=== PATIENT | female | born 1995 | race American Indian/Alaskan Native ===

== ENCOUNTER 2017-12-19 21:30 | Emergency (ER) | payer MEDICAID ==
[2017-12-19] MEDS ORDERED: NACL 0.9% 1000 ML 1,000 ML IV ONE (21:53)
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
[2017-12-19 22:05] LABS: Hematocrit 38.7 % (30.3-42.9); Hemoglobin 12.8 gm/dl (10.1-14.3); Mean Corpuscular HGB Conc 33 % (30-34); Mean Corpuscular Hemoglobin 29 pg (28-32); Mean Corpuscular Volume 88 fl (79-97); Platelet Count 455 K/mm3 (140-440); Red Blood Count 4.39 M/mm3 (3.65-5.03); Red Cell Distribution Width 14.4 % (13.2-15.2)
[2017-12-19 22:08] LABS: INR 0.98 (0.87-1.13)
[2017-12-19 22:09] LABS: Partial Thromboplastin Time 31.1 Sec. (24.2-36.6)
[2017-12-19] MEDS ORDERED: NACL 3% 500 ML IV ONE (22:12)
[2017-12-19 22:14] LABS: Alanine Aminotransferase 97 units/L (7-56); Albumin 4.2 g/dL (3.9-5); BUN/Creatinine Ratio 14; Blood Urea Nitrogen 13 mg/dL (7-17); Calcium 9.3 mg/dL (8.4-10.2); Hemolysis Index 11
--- NOTE | 2017-12-19 22:36 | XRay Report ---
FINAL REPORT PROCEDURE: XR CHEST 1V AP TECHNIQUE: Chest radiograph anteroposterior view. CPT 47831 HISTORY: dyspnea COMPARISON: No prior studies are available for comparison. FINDINGS: Heart: Normal. Mediastinum/Vessels: Normal. Lungs/Pleural space: Normal. Bony thorax: No acute osseous abnormality. Life support devices: Endotracheal tube at the [place]. IMPRESSION: Endotracheal tube at the [place] should be pulled back 3 cm.
[2017-12-19] MEDS ORDERED: ARTIFICIAL TEARS OPHTH OINT OU PRN (22:50)
[2017-12-19] MEDS ORDERED: VASELINE LIP THERAPY TP PRN (22:50)
[2017-12-19] MEDS ORDERED: QUELICIN ONE ×2 (23:00)
[2017-12-19] MEDS ORDERED: MIDAZOLAM 100 MG in NACL 0.9% 80 ML IV SCH (23:00)
[2017-12-19] MEDS ORDERED: VERSED IV ONE (23:00)
[2017-12-19] MEDS ORDERED: AMIDATE IV ONE ×2 (23:00)
[2017-12-19] MEDS ORDERED: VERSED IV NR (23:00)
--- NOTE | 2017-12-19 23:21 | Cat Scan Report ---
FINAL REPORT PROCEDURE: CT HEAD/BRAIN WO CON TECHNIQUE: Computerized tomography of the head was performed without contrast material. HISTORY: Trauma COMPARISON: No prior studies are available for comparison. FINDINGS: Skull and scalp: Soft tissue swelling and injury over the convexity, of the face, and of the right frontal and parietal-occipital regions. Paranasal sinuses: Normal. Ventricles and subarachnoid spaces: Normal. Cerebrum: There is subtle focus of increased density in the right frontal lobe with possible hemorrhagic contusion, series 2, image 35. There is subtle extra-axial increased density in the left parietal region with subdural hematoma versus artifact, series 2 image 48 through 50 Cerebellum and brainstem: No evidence of hemorrhage, acute infarction or mass. Vasculature: Normal. Comments: None. IMPRESSION: Soft tissue swelling and injury. Increased density in the right frontal region suggesting hemorrhagic contusion. Subtle increased density in the left parietal region with probable subdural hematoma.
--- NOTE | 2017-12-19 23:22 | Cat Scan Report ---
FINAL REPORT PROCEDURE: CT CERVICAL SPINE WO CON TECHNIQUE: Computerized tomography of the cervical spine was performed from the skull base to T1 without contrast material. HISTORY: Trauma COMPARISON: No prior studies are available for comparison. FINDINGS: There is straightening of the cervical lordosis. Alignment is otherwise satisfactory. Odontoid process is intact. No fracture. C1-2: No significant abnormality. C2-3: No significant abnormality. C3-4: No significant abnormality. C4-5: No significant abnormality. C5-6: No significant abnormality. C6-7: No significant abnormality. C7-T1: No significant abnormality. Other: There is endotracheal tube. IMPRESSION: No significant abnormality.
--- NOTE | 2017-12-19 23:32 | Cat Scan Report ---
FINAL REPORT PROCEDURE: CT THORACIC SPINE WO CON TECHNIQUE: Computerized axial tomography of the thoracic spine was performed from C7 - L1 without contrast material. HISTORY: Trauma COMPARISON: No prior studies are available for comparison. FINDINGS: Alignment is satisfactory. There is no compression fracture. Disc spaces are well preserved. There are fractures involving the transverse processes on the right side of T5, T7, T8, and T9. There are fractures of ribs including the right 1st anterior rib and the left posterior 8 through 11th ribs. There airspace consolidation in the right mid and lower lung consistent with contusion. There is small pleural effusions. IMPRESSION: Fractures of right transverse processes of T5, T7, T8, and T9. Multiple bilateral rib fractures. Contusion of the right lung. Bilateral pleural effusions.
--- NOTE | 2017-12-19 23:34 | Cat Scan Report ---
FINAL REPORT PROCEDURE: CT FACIAL BONES WO CON TECHNIQUE: Computerized tomography of the facial bones and soft tissues with axial and coronal sections performed from the cranial aspect of the frontal sinuses to the caudal portion of the mandible without contrast material. HISTORY: Trauma COMPARISON: No prior studies are available for comparison. FINDINGS: Bones: No significant abnormality. Paranasal sinuses: Clear. Soft tissues: Soft tissue swelling and injury of the face and frontal region. Other: There is endotracheal tube.. IMPRESSION: No fracture seen.
--- NOTE | 2017-12-19 23:37 | Cat Scan Report ---
FINAL REPORT PROCEDURE: CT LUMBAR SPINE WO CON TECHNIQUE: Magnetic resonance imaging of the lumbar spine was performed using standard pulse sequences without contrast material. CPT 90166 HISTORY: Trauma COMPARISON: No prior studies are available for comparison. FINDINGS: No fracture. Alignment is satisfactory. Disc spaces are well preserved. L1-2: No significant abnormality . L2-3: No significant abnormality . L3-4: No significant abnormality . L4-5: No significant abnormality . L5-S1: No significant abnormality . Other: None . IMPRESSION: Normal Examination
[2017-12-19 23:38] LABS: Bilirubin,Urine NEG (Negative); Blood,Urine LG (Negative); Color,Urine Straw (Yellow); Protein,Urine <15 mg/dL mg/dL (Negative); Urobilinogen,Urine < 2.0 mg/dL (<2.0)
[2017-12-19 23:39] LABS: HCG Qualitative,Urine Negative (Negative)
[2017-12-19 23:44] VITALS: BP 149/100
[2017-12-19 23:45] LABS: Amphetamine Screen,Urine PRESUMPTIVE NEGATIVE; Cocaine Screen,Urine PRESUMPTIVE NEGATIVE; Methadone Screen,Urine PRESUMPTIVE NEGATIVE; Opiate Screen,Urine PRESUMPTIVE NEGATIVE
--- NOTE | 2017-12-19 23:46 | Cat Scan Report ---
FINAL REPORT PROCEDURE: CT CHEST W CON TECHNIQUE: Computerized axial tomography of the chest was performed without contrast material. HISTORY: Trauma COMPARISON: No prior studies are available for comparison. TECHNICAL QUALITY: Satisfactory. FINDINGS: Heart and pericardium: Normal. Thoracic aorta: Normal. Pulmonary vasculature: Normal. Lymph nodes: No enlarged thoracic lymph nodes. Lungs: There is right mid and lower lung airspace consolidation.. Pleural space: Small pleural effusions. There is tiny right pneumothorax of less than 5 percent at the lung base. Musculoskeletal structures: There are fractures of the right 1st through 4th anterior ribs. There is fracture of the lateral right 6th rib. There fractures of the left 9th through 11th rib fractures. There are fractures of the right transverse processes of T5, T7, T8, and T9. There is fracture of the sternum with displacement. There is adjacent soft tissue swelling with hematoma in the mediastinum. Upper abdominal structures: No significant abnormality. IMPRESSION: Multiple fractures involving ribs , transverse processes of the thoracic spine, and the sternum with displacement. There is contusion of right lung. There is small right pneumothorax. There is hematoma in the upper mediastinum.
--- NOTE | 2017-12-19 23:50 | Cat Scan Report ---
FINAL REPORT PROCEDURE: CT ABDOMEN PELVIS W CON TECHNIQUE: Computerized axial tomography of the abdomen and pelvis was performed after the IV injection of iodinated nonionic contrast. HISTORY: Trauma COMPARISON: No prior studies are available for comparison. FINDINGS: Visualized lower thorax: Right lower lung consolidation. Small bilateral pleural effusions. Tiny right pneumothorax. Liver: Normal size and attenuation. Spleen: Normal size and attenuation. Gallbladder and biliary system: Normal. Pancreas: Normal. Adrenals: Normal. Kidneys: Normal. GI tract: Normal. Lymph nodes and mesentery: Normal. Vasculature: Normal. Bladder: Normal. Reproductive organs: Normal uterus. Peritoneum: No free fluid. Musculoskeletal structures: There multiple rib fractures. There fractures involving right transverse processes of lower thoracic vertebra. 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 Other: None. IMPRESSION: No solid organ injury. No free fluid. No mass or obstruction. Thoracic trauma with pulmonary contusion, pneumothorax, rib and spine fractures
[2017-12-20 00:12] LABS: Benzodiazepines Screen,Urine PRESUMPTIVE POSITIVE; Cannabinoid Screen,Urine PRESUMPTIVE POSITIVE
[2017-12-20 02:49] LABS: Band Neutrophils # (Manual) 0.2 K/mm3; Basophils % (Manual) 0 % (0.0-1.8); Monocytes % (Manual) 3.5 % (0.0-7.3); Platelet Clumps Few; Platelet Estimate Consistent w Auto; Total Cells Counted 200
== END 2017-12-19 23:30 | disposition other institution (70) ==
LOC: EDUNIT# → EDBD → ED 21:30
DX: S06.9X9A Unspecified intracranial injury with loss of consciousness of unspecified duration, initial encounter (principal); S27.0XXA Traumatic pneumothorax, initial encounter; S22.009A Unspecified fracture of unspecified thoracic vertebra, initial encounter for closed fracture; V49.49XA Driver injured in collision with other motor vehicles in traffic accident, initial encounter; Y93.89 Activity, other specified; Y92.488 Other paved roadways as the place of occurrence of the external cause; Y99.8 Other external cause status
CPT/HCPCS: 31500; 36415; 51702; 70450; 70486; 71045; 71260; 72125; 72128; 72131; 74177; 80053; 80307; 81001; 81025; 82550; 85007; 85025; 85610; 85730; 86850; 86900; 86901; 93005; 93010; 96374; 96375; 99291; 99292; G0480; J0330; J2250; J7030; Q9967; 80320; 94002